=== PATIENT | male | born 1970 | race African-American/Black ===

== ENCOUNTER 2023-04-14 10:55 | Outpatient (AMB) | payer BC, SELFPAY ==
[2023-04-14 11:03] VITALS: BP 130/80; PULSE 82; BMI 39.6
--- NOTE | 2023-04-14 11:03 | HO.NEPHOV_ITS ---
HPI HPI Comments History of Present Illness Details 52-year-old man with a history of diabet es mellitus obesity with micro albuminuria. Overall renal function has been stable. The hemoglobin A1c has decreased from 12.8 down to 9.3 over the last several months. It has been a minimal improvement in the urine protein excretion. Today has no new complaints. Vital Signs 04/14/23 11:03 Height 6 ft 1 in Weight 300 lb 8 oz BMI 39.6 BP 130/80 Blood Pressure Location Rt brachial Position Sitting Pulse 82 Physical Exam Vital Signs: Last Vital Signs Pulse 82 04/14/23 11:03 BP 130/80 04/14/23 11:03 BMI result Body Mass Index 39.6 Const General: comfortable Nutritional Appearance: well nourished Orientation/consciousness: patient oriented x3 HEENT Head: No normal to inspection Mouth: moist mucous membranes Neck Neck: Yes supple and Yes no JVD Resp Auscultation: clear to auscultation bilaterally, no rales and rub present Cardio Jugular venous distension: no JVD Palpation: no palpable S3 and no palpable S4 Heart sounds: no rubs GI Palpation (GI): Soft to palpation and nontender Percussion: No Fluid wave present General: Yes no CVA tenderness Back/Spine/Pelvis Back: no CVA tenderness Skin General skin exam: no rashes or lesions noted Neuro General: patient oriented x3 Extrem General: Yes no pedal edema and No clubbing Results Reviewed Results Reviewed: Lab from January 2023 was reviewed Assessment & Plan Assessment & Plan (1) Proteinuria: Code(s): R80.9 - Proteinuria, unspecified (2) CKD (chronic kidney disease): Code(s): N18.9 - Chronic kidney disease, unspecified Plan Middle-aged man with diabetes medicine obesity with microalbuminuria. Renal function stable at this time with a creatinine 1.0. There has been a minimal improvement in the urinary protein excretion. Continue with Arnol inhibition for renal protection. Agree with SGLT-2 inhibitors We discussed importance of tight control blood sugar to slow the progression of disease. Hemoglobin A1c should be maintained less than 7%. We discussed weight loss and I have encouraged him to increase his physical activity. Orders: Orders US renal BI Today N18.9 - Chronic kidney disease, unspecified, R80.9 - Proteinuria, unspecified Total Protein Urine Random 6 Months N18.9 - Chronic kidney disease, unspecified, R80.9 - Proteinuria, unspecified Creatinine Urine 6 Months N18.9 - Chronic kidney disease, unspecified, R80.9 - Proteinuria, unspecified UA and rflx microscopic 6 Months N18.9 - Chronic kidney disease, unspecified, R80.9 - Proteinuria, unspecified Electrolytes 6 Months N18.9 - Chronic kidney disease, unspecified, R80.9 - Proteinuria, unspecified Calcium 6 Months N18.9 - Chronic kidney disease, unspecified, R80.9 - Proteinuria, unspecified Blood Urea Nitrogen 6 Months N18.9 - Chronic kidney disease, unspecified, R80.9 - Proteinuria, unspecified Creatinine 6 Months N18.9 - Chronic kidney disease, unspecified, R80.9 - Proteinuria, unspecified Coding Level of Care Code Est Pt Level 3 (43486) Diagnoses Proteinuria R80.9 CKD (chronic kidney disease) N18.9
== END 2023-04-14 11:26 | disposition home or self-care (01) ==
PROVIDERS: PCP Internal Medicine; Visit Provider Internal Medicine Hypertension Specialist
DX: R80.9 Proteinuria, unspecified (principal); N18.9 Chronic kidney disease, unspecified
CPT/HCPCS: 99213

== ENCOUNTER → 2023-04-14 10:55 | Outpatient (BNVA) | payer BC, SELFPAY | PROVIDERS: PCP Internal Medicine; Visit Provider Internal Medicine Hypertension Specialist ==

== ENCOUNTER 2023-05-20 08:40 | Outpatient (REF) | payer BC, SELFPAY ==
--- NOTE | ~2023-05-20 | US_ITS ---
EXAMINATION: US RETROPERITONEAL LIMITED (RENAL ONLY) CLINICAL INFORMATION: Chronic kidney disease, unspecified. COMPARISON: CT abdomen and pelvis 08/06/2022. TECHNIQUE: Real-time imaging of the kidneys. FINDINGS: RIGHT KIDNEY: 11.7 x 6.6 x 6.9 cm (SAG x AP x TRV). The kidney is normal in size, contour, and echogenicity. Renal cortical thickness is normal. No calculi or focal parenchymal lesions. No hydronephrosis. LEFT KIDNEY: 12.6 x 7.1 x 5.9 cm (SAG x AP x TRV). The kidney is normal in size, contour, and echogenicity. Renal cortical thickness is normal. No calculi or focal parenchymal lesions. No hydronephrosis. US/US renal BI IMPRESSION: Unremarkable renal ultrasound.
== END 2023-05-20 08:41 | disposition home or self-care (01) ==
LOC: HO.US 08:40
PROVIDERS: PCP Internal Medicine; Visit Provider Internal Medicine Hypertension Specialist
DX: N18.9 Chronic kidney disease, unspecified (principal); R80.9 Proteinuria, unspecified
CPT/HCPCS: 76775

== ENCOUNTER 2023-10-20 10:10 | Outpatient (AMB) | payer BC, SELFPAY ==
--- NOTE | 2023-10-20 10:14 | HO.NEPHOV ---
Vital Signs 10/20/23 10:15 Height 6 ft 1 in Weight 311 lb BMI 41.0 BP 138/78 Blood Pressure Location Lt brachial Position Sitting Pulse 86 Pulse Source Pulse Oximeter Pulse Oximetry (%) 6 L Oxygen Delivery Method Room Air Intake Visit Reasons: Follow-up/ Confirmed Digital Imaging Specialist Required: No Accompanied by: Self / Same As Patient Allergies No Known Allergies Allergy (Verified 10/20/23 10:17) HPI Comments Details: 52-year-old man with a history of diabetes mellitus obesity with micro albuminuria. Overall renal function has been stable. The hemoglobin A1c has decreased from 12.8 down to 9.3 over the last several months. It has been a minimal improvement in the urine protein excretion. Today has no new complaints. [facility] Surgical History (Updated 10/20/23 @ 10:21 by Janessa Auguste) History of arthroplasty of right shoulder (~08/2023) Physical Exam Vital Signs: Last Vital Signs Pulse 86 10/20/23 10:15 BP 138/78 10/20/23 10:15 Pulse Ox 6 L 10/20/23 10:15 Oxygen Delivery Method Room Air 10/20/23 10:15 BMI result Body Mass Index 41.0 Const General: comfortable Nutritional Appearance: well nourished Orientation/consciousness: patient oriented x3 HEENT Head: No normal to inspection Mouth: moist mucous membranes Neck Neck: Yes supple and Yes no JVD Resp Auscultation: clear to auscultation bilaterally, no rales and rub present Cardio Jugular venous distension: no JVD Palpation: no palpable S3 and no palpable S4 Heart sounds: no rubs GI Palpation (GI): Soft to palpation and nontender Percussion: No Fluid wave present General: Yes no CVA tenderness Back/Spine/Pelvis Back: no CVA tenderness Skin General skin exam: no rashes or lesions noted Neuro General: patient oriented x3 Extrem General: Yes no pedal edema and No clubbing Results Reviewed Nephrology Results: Renal US 05/20/23 Assessment & Plan Assessment & Plan (1) Proteinuria: Code(s): R80.9 - Proteinuria, unspecified Category: Medical (2) CKD (chronic kidney disease): Code(s): N18.9 - Chronic kidney disease, unspecified Category: Medical Plan Middle-aged man with diabetes medicine obesity with microalbuminuria. Renal function stable at this time with a creatinine 1.0. There has been a minimal improvement in the urinary protein excretion. Continue with Arnol inhibition for renal protection. Agree with SGLT-2 inhibitors We discussed importance of tight control blood sugar to slow the progression of disease. Hemoglobin A1c should be maintained less than 7%. We discussed weight loss and I have encouraged him to increase his physical activity. Orders: Orders Basic Metabolic Panel Today R80.9 - Proteinuria, unspecified UA and rflx microscopic Today R80.9 - Proteinuria, unspecified Total Protein Urine Random Today R80.9 - Proteinuria, unspecified Creatinine Urine Today N05.9 - Unspecified nephritic syndrome with unspecified morphologic changes, R80.9 - Proteinuria, unspecified Coding Level of Care Code Est Pt Level 4 (79261) Diagnoses Proteinuria R80.9 CKD (chronic kidney disease) N18.9
[2023-10-20 10:15] VITALS: BP 138/78; PULSE 86; O2SAT 6; BMI 41.0
== END 2023-10-20 10:31 | disposition home or self-care (01) ==
PROVIDERS: PCP Internal Medicine; Visit Provider Internal Medicine Hypertension Specialist
DX: R80.9 Proteinuria, unspecified (principal); N18.9 Chronic kidney disease, unspecified
CPT/HCPCS: 99214

== ENCOUNTER → 2023-10-20 10:10 | Outpatient (BNVA) | payer BC, SELFPAY | PROVIDERS: PCP Internal Medicine; Visit Provider Internal Medicine Hypertension Specialist ==

== ENCOUNTER 2023-10-20 10:43 | Outpatient (REF) | payer BC, SELFPAY ==
[2023-10-20 12:18] LABS: Appearance Urine Clear; Color Urine Yellow; Glucose Urine UA >=1000 mg/dL (Negative); Leukocyte Esterase Urine Negative (Negative); Nitrite Urine Negative (Negative); Specific Gravity - Urine 1.025 (1.005-1.025); UMIC TRIGGER UA YES; Urine Blood Negative (Negative); Urine Ketones Negative (Negative); Urine Protein 100 (2+) mg/dL (Neg-Trace)
[2023-10-20 12:23] LABS: Bacteria Urine None Seen (None Seen); Hyaline Casts Urine 0-2 /LPF (0-2); RBC Urine 0-2 /HPF (0-2); Squamous Epithelial Cell Urine 0-2 /HPF (0-2); WBC Urine 0-5 /HPF (0-5)
[2023-10-20 12:49] LABS: Creatinine Urine 41.95 mg/dL; Total Protein Urine Random 59 mg/dL (<12)
[2023-10-20 12:51] LABS: Anion Gap 14 (12-20); Blood Urea Nitrogen 17 mg/dL (9-16); Calcium 8.5 mg/dL (8.4-10.2); Carbon Dioxide 23 mmol/L (22-29); Chloride 107 mmol/L (96-108); Estimated Glomerular Filt Rate > 60; Glucose Random 246 mg/dL (60-115); Potassium 3.8 mmol/L (3.3-5.1); Sodium 140 mmol/L (135-145)
== END 2023-10-20 10:44 | disposition home or self-care (01) ==
LOC: HO.HKASLDS 10:43
PROVIDERS: Visit Provider Internal Medicine Hypertension Specialist
DX: N18.9 Chronic kidney disease, unspecified (principal); R80.9 Proteinuria, unspecified
CPT/HCPCS: 36415; 80048; 81001; 82570; 84156

== ENCOUNTER 2024-02-16 10:13 | Outpatient (AMB) | payer BC, SELFPAY ==
--- NOTE | 2024-02-16 10:15 | HO.NEPHOV_ITS ---
Vital Signs 02/16/24 10:16 Height 6 ft 1 in Weight 306 lb BMI 40.4 BP 138/82 Blood Pressure Location Lt brachial Position Sitting Pulse 86 Pulse Source Pulse Oximeter Pulse Oximetry (%) 97 Oxygen Delivery Method Room Air Intake Visit Reasons: Follow-up/ Conf Strategic Account Director Required: No Accompanied by: Self / Same As Patient Allergies No Known Allergies Allergy (Verified 02/16/24 10:17) Medication List - Last Reconciled 02/16/24 by Shakeel House MD acetaminophen (Tylenol) 325 mg PO QID PRN albuterol sulfate 90 mcg/actuation 1 puff inhalation QID aspirin (Adult Low Dose Aspirin) 81 mg PO DAILY dulaglutide (Trulicity) 1.5 mg subcut QWEEK empagliflozin (Jardiance) 25 mg PO DAILY enalapril maleate 20 mg PO DAILY hydrocortisone 2.5% 1 appl topical QID PRN insulin glargine 10 units subcut QPM insulin lispro (Humalog U-100 Insulin) 1 sliding scale dose subcut USEASDIRECTD loratadine 10 mg PO DAILY peg-electrolyte soln 420 gram 240 mL PO Q10M vardenafil 10 mg PO DAILY HPI Comments Details: 52-year-old man with a history of diabetes mellitus obesity with micro albuminuria. Overall renal function has been stable. The hemoglobin A1c has decreased from 12.8 down to 9.3 over the last several months. It has been a minimal improvement in the urine protein excretion. Today has no new complaints. Now on JArdiance [facility] Surgical History History of arthroplasty of right shoulder (~08/2023) Physical Exam Vital Signs: Last Vital Signs Pulse 86 02/16/24 10:16 BP 138/82 02/16/24 10:16 Pulse Ox 97 02/16/24 10:16 Oxygen Delivery Method Room Air 02/16/24 10:16 BMI result Body Mass Index 40.4 Const General: comfortable Nutritional Appearance: well nourished Orientation/consciousness: patient oriented x3 HEENT Head: No normal to inspection Mouth: moist mucous membranes Neck Neck: Yes supple and Yes no JVD Resp Auscultation: clear to auscultation bilaterally, no rales and rub present Cardio Jugular venous distension: no JVD Palpation: no palpable S3 and no palpable S4 Heart sounds: no rubs GI Palpation (GI): Soft to palpation and nontender Percussion: No Fluid wave present General: Yes no CVA tenderness Back/Spine/Pelvis Back: no CVA tenderness Skin General skin exam: no rashes or lesions noted Neuro General: patient oriented x3 Extrem General: Yes no pedal edema and No clubbing Results Reviewed Nephrology Results: Sodium 140 mmol/L (135-145) 10/20/23 Potassium 3.8 mmol/L (3.3-5.1) 10/20/23 Chloride 107 mmol/L (96-108) 10/20/23 Carbon Dioxide 23 mmol/L (22-29) 10/20/23 BUN 17 mg/dL (9-16) H 10/20/23 Creatinine 1.05 mg/dL (0.5-1.4) 10/20/23 Calcium 8.5 mg/dL (8.4-10.2) 10/20/23 Urine Protein 100 (2+) mg/dL (Neg-Trace) H 10/20/23 Urine Creatinine 41.95 mg/dL 10/20/23 Renal US 05/20/23 Assessment & Plan Assessment & Plan (1) Proteinuria: Code(s): R80.9 - Proteinuria, unspecified Category: Medical (2) CKD (chronic kidney disease): Code(s): N18.9 - Chronic kidney disease, unspecified Category: Medical Plan Middle-aged man with diabetes medicine obesity with microalbuminuria. Renal function stable at this time with a creatinine 1.0. There has been a minimal improvement in the urinary protein excretion. Continue with Arnol inhibition for renal protection. Agree with SGLT-2 inhibitors We discussed importance of tight control blood sugar to slow the progression of disease. Hemoglobin A1c should be maintained less than 7%. We discussed weight loss and I have encouraged him to increase his physical activity. No changes were made Orders: Orders Comprehensive Met. Panel 6 Months N18.9 - Chronic kidney disease, unspecified, R80.9 - Proteinuria, unspecified Total Protein Urine Random 6 Months N18.9 - Chronic kidney disease, unspecified, R80.9 - Proteinuria, unspecified Creatinine Urine 6 Months N18.9 - Chronic kidney disease, unspecified, R80.9 - Proteinuria, unspecified Complete Blood Count Auto Diff 6 Months N18.9 - Chronic kidney disease, unspecified, R80.9 - Proteinuria, unspecified UA and rflx microscopic 6 Months N18.9 - Chronic kidney disease, unspecified, R80.9 - Proteinuria, unspecified Coding Level of Care Code Est Pt Level 4 (85296) Diagnoses Proteinuria R80.9 CKD (chronic kidney disease) N18.9
[2024-02-16 10:16] VITALS: BP 138/82; PULSE 86; O2SAT 97; BMI 40.4
== END 2024-02-16 10:39 | disposition home or self-care (01) ==
PROVIDERS: PCP Internal Medicine; Visit Provider Internal Medicine Hypertension Specialist
DX: R80.9 Proteinuria, unspecified (principal); N18.9 Chronic kidney disease, unspecified
CPT/HCPCS: 99214

== ENCOUNTER → 2024-02-16 10:13 | Outpatient (BNVA) | payer BC, SELFPAY | PROVIDERS: PCP Internal Medicine; Visit Provider Internal Medicine Hypertension Specialist | DX: R80.9 Proteinuria, unspecified (principal); N18.9 Chronic kidney disease, unspecified ==

== ENCOUNTER 2024-08-23 09:49 | Outpatient (AMB) | payer BC, SELFPAY ==
[2024-08-23 09:47] VITALS: BP 118/78; PULSE 79; O2SAT 98; BMI 39.0
--- NOTE | 2024-08-23 09:47 | HO.NEPHOV_ITS ---
Vital Signs 08/23/24 09:47 Height 6 ft 1 in Weight 296 lb BMI 39.0 BP 118/78 Blood Pressure Location Lt brachial Position Sitting Pulse 79 Pulse Source Pulse Oximeter Pulse Oximetry (%) 98 Oxygen Delivery Method Room Air Intake Visit Reasons: 6 mon follow up/ Conf Remote Recruiter Required: No Accompanied by: Self / Same As Patient Allergies No Known Allergies Allergy (Verified 08/23/24 09:49) Medication List - Last Reconciled 08/23/24 by Shakeel House MD acetaminophen (Tylenol) 325 mg PO QID PRN albuterol sulfate 90 mcg/actuation 1 puff inhalation QID aspirin (Adult Low Dose Aspirin) 81 mg PO DAILY dulaglutide (Trulicity) mg subcut empagliflozin (Jardiance) 25 mg PO DAILY enalapril maleate 20 mg PO DAILY ezetimibe 10 mg PO DAILY hydrocortisone 2.5% 1 appl topical QID PRN insulin glargine 10 units subcut QPM insulin lispro (Humalog U-100 Insulin) 1 sliding scale dose subcut USEASDIRECTD loratadine 10 mg PO DAILY peg-electrolyte soln 420 gram 240 mL PO Q10M vardenafil 10 mg PO DAILY HPI Comments Details: 54-year-old man with a history of diabetes mellitus obesity with micro albumi rodriguez. Renal function has been stable. He is here for semiannual follow-up Denies any new complaints today. Now on Jardiance and and enalapril Recent A1C is 8.9 % in Jun 2024 [facility] Surgical History History of arthroplasty of right shoulder (~08/2023) Physical Exam Vital Signs: Last Vital Signs Pulse 79 08/23/24 09:47 BP 118/78 08/23/24 09:47 Pulse Ox 98 08/23/24 09:47 Oxygen Delivery Method Room Air 08/23/24 09:47 BMI result Body Mass Index 39.0 Const General: comfortable Nutritional Appearance: well nourished Orientation/consciousness: patient oriented x3 HEENT Head: No normal to inspection Mouth: moist mucous membranes Neck Neck: Yes supple and Yes no JVD Resp Auscultation: clear to auscultation bilaterally and no rales Cardio Jugular venous distension: no JVD Palpation: no palpable S3 and no palpable S4 Heart sounds: no rubs GI Palpation (GI): Soft to palpation and nontender Percussion: No Fluid wave present General: Yes no CVA tenderness Back/Spine/Pelvis Back: no CVA tenderness Skin General skin exam: no rashes or lesions noted Neuro General: patient oriented x3 Extrem General: Yes no pedal edema and No clubbing Results Reviewed Nephrology Results: Sodium 140 mmol/L (135-145) 10/20/23 Potassium 3.8 mmol/L (3.3-5.1) 10/20/23 Chloride 107 mmol/L (96-108) 10/20/23 Carbon Dioxide 23 mmol/L (22-29) 10/20/23 BUN 17 mg/dL (9-16) H 10/20/23 Creatinine 1.05 mg/dL (0.5-1.4) 10/20/23 Calcium 8.5 mg/dL (8.4-10.2) 10/20/23 Urine Protein 100 (2+) mg/dL (Neg-Trace) H 10/20/23 Urine Creatinine 41.95 mg/dL 10/20/23 Renal US 05/20/23 Assessment & Plan Assessment & Plan (1) Proteinuria: Code(s): R80.9 - Proteinuria, unspecified Category: Medical (2) CKD (chronic kidney disease): Code(s): N18.9 - Chronic kidney disease, unspecified Category: Medical Plan Middle-aged man with diabetes medicine obesity with microalbuminuria. Renal function stable at this time with a creatinine 1.0. There has been a minimal improvement in the urinary protein excretion. Continue with Arnol inhibition for renal protection. Agree with SGLT-2 inhibitors We discussed importance of tight control blood sugar to slow the progression of disease. Hemoglobin A1c should be maintained less than 7%. We discussed weight loss and I have encouraged him to increase his physical activity. Increase PO fluid intake No changes were made Orders: Orders Creatinine Urine Today N18.9 - Chronic kidney disease, unspecified, R80.9 - Proteinuria, unspecified UA and rflx microscopic Today N18.9 - Chronic kidney disease, unspecified, R80.9 - Proteinuria, unspecified UA and rflx microscopic 6 Months N18.9 - Chronic kidney disease, unspecified, R80.9 - Proteinuria, unspecified Total Protein Urine Random Today N18.9 - Chronic kidney disease, unspecified, R80.9 - Proteinuria, unspecified Basic Metabolic Panel 6 Months N18.9 - Chronic kidney disease, unspecified, R80.9 - Proteinuria, unspecified Creatinine Urine 6 Months N18.9 - Chronic kidney disease, unspecified, R80.9 - Proteinuria, unspecified Total Protein Urine Random 6 Months N18.9 - Chronic kidney disease, unspecified, R80.9 - Proteinuria, unspecified Coding Level of Care Code Est Pt Level 4 (56829) Diagnoses Proteinuria R80.9 CKD (chronic kidney disease) N18.9
--- OUTSIDE RECORDS SUMMARY | 2024-08-23 11:10 | XMS_ITS ---
Author Name [facility] Organization Unknown History of Medication Use Medication Directions Dispensed Refills Start Date End Date Stat naproxen 500 mg tablet TAKE 1 TABLET BY MOUTH TWO TIMES A DAY NEEDED FOR MODERATE PAIN 3 completed Semglee (insulin glargine-yfgn) Pen 100 unit/mL (3 mL) subcutaneous INJECT 70 UNITS SUBCUTANEOUSLY DAILY DIRECTED. active tadalafil 10 mg tablet active sildenafil 50 mg tablet TAKE 1 TABLET BY MOUTH EVERY DAY 1 HOUR BEFORE SEXUAL ACTIVITY NEEDED ERECTILE DYSFUNCTION active Jardiance 10 mg tablet TAKE 1 TABLET BY MOUTH EVERY DAY IN THE MORNING active Trulicity 0.75 mg/0.5 mL subcutaneous pen injector INJECT 1 PEN SUBCUTANEOUSLY ONCE WEEKLY active oxycodone 5 mg tablet TAKE 1 TABLET EVERY 6-8 HOURS NEEDED, DO NOT START UNTIL AFTER SURGERY 07/26/2023 active Lantus Solostar U-100 Insulin 100 unit/mL (3 mL) subcutaneous pen INJECT 76 UNITS SUBCUTANEOUSLY DAILY DIRECTED. active naproxen 500 mg tablet TAKE 1 TABLET BY MOUTH TWO TIMES A DAY NEEDED FOR MODERATE PAIN 3 completed enalapril maleate 20 mg tablet TAKE 2 TABLETS BY MOUTH EVERY DAY active sildenafil 50 mg tablet TAKE 1 TABLET BY MOUTH EVERY DAY 1 HOUR BEFORE SEXUAL ACTIVITY NEEDED ERECTILE DYSFUNCTION active clindamycin HCl 150 mg capsule TAKE 1 CAPSULE BY MOUTH EVERY 6 HOURS WITH FOOD IF ANY ALLERGIC REACTION,PLEASE CALL OFFICE CHUY 3 completed Jardiance 25 mg tablet TAKE 1 TABLET BY MOUTH EVERY MORNING active nystatin 100,000 unit/gram topical cream APPLY TO FEET TWICE A DAY active Jardiance 10 mg tablet TAKE 1 TABLET BY MOUTH EVERY DAY IN THE MORNING active meloxicam 15 mg tablet TAKE 1 TABLET EVERY DAY IN THE MORNING FOR 7 DAYS, START THE DAY AFTER SURGERY 4 completed Jardiance 25 mg tablet TAKE 1 TABLET BY MOUTH EVERY MORNING active loratadine 10 mg tablet TAKE 1 TABLET BY MOUTH DAILY NEEDED FOR ALLERGIES 3 completed nystatin 100,000 unit/gram topical cream APPLY TO FEET TWICE A DAY active lorazepam 1 mg tablet PLEASE SEE ATTACHED FOR DETAILED DIRECTIONS 4 completed Humalog KwikPen (U-100) Insulin 100 unit/mL subcutaneous PLEASE SEE ATTACHED FOR DETAILED DIRECTIONS active ezetimibe 10 mg tablet TAKE 1 TABLET BY MOUTH EVERY DAY active ondansetron HCl 4 mg tablet TAKE 1 TABLET BY MOUTH EVERY 8 HOURS NEEDED FOR SURGERY 4 completed Problems Problem Status Onset Date Problem Type Date of Resoluti on Source Claustrophobia active 2023-06-01 ProblemAct ENS _AONECT Pain of right shoulder joint active 2023-05-19 ProblemAct ENS_AONECT Impingement syndrome of right shoulder region active 2023-05-19 ProblemAct ENS_AO NECT Encounters Encounter Type Encounter Reason Primary Diagnosis Location Date Ambulatory [facility] [place] 08/20/2023 Ambulatory [facility] [place] 08/07/2023 Ambulatory [facility] [place] 08/02/2023 Ambulatory [facility] [place] 07/26/2023 Ambulatory ROUTINE Adhesive capsuli tis of right shoulder [facility] 07/21/2023 Ambulatory [facility] [place] 07/15/2023 Ambulatory [facility] [place] 07/12/2023 Ambulatory [facility] [place] 06/30/2023 Ambulatory [facility] [place] 06/28/2023 Ambulatory [facility] [place] 06/23/2023 Ambulatory [facility] [place] 06/11/2023 Ambulatory [facility] [place] 06/11/2023 Ambulatory [facility] [place] 06/10/2023 Ambulatory [facility] [place] 06/05/2023 Ambulatory [facility] [place] 05/02/2023 Ambulatory [facility] [place] 04/15/2023 Ambulatory [facility] [place] 04/15/2023 Ambulatory [facility] [place] 04/09/2023 Care Team Organization Name Specialty Phone Email Start Date End Da te [facility] 202307/21/2023 [facility] 2023
--- OUTSIDE RECORDS SUMMARY | 2024-08-23 11:10 | XMS_ITS | Clinical Summary ---
Author Organization [facility] Address [address] [place] [address] Phone Care Team Providers Care Station Installation Supervisor Name Role Phone Jaciel Denton MD Primary Care Provider [phone] Allergies Active Allergy Reactions Criticality Noted Date Comments Amoxicillin Hives,Other (see comments) 09/02/19 15 Hydrocodone Hives 05/30/2018 Simvastatin Other (see comments) 10/23/2020 Sulfa Antibiotics Other (see comments) 10/24/19 21 Medications insulin glargine (LANTUS) 100 UNIT/ML injection Inject 58 Units under the skin Active Cholecalciferol (Vitamin D3) 25 MCG (1000 UT) capsule 08/22/2020 Active enalapril (VASOTEC) 20 MG tablet Take 40 mg by mouth 1 (one) time each day 10/10/2020 Active Empagliflozin 25 MG tablet Take 25 mg by mouth Active Active Problems Problem Noted Date Diagnosed Date COVID-19 12/02/2021 Diverticular disease of colon 12/02/2021 Follow-up status 12/02/2021 Hyperlipidemia 12/02/2021 Low back pain 12/02/2021 Allergic rhinitis 10/22/2020 Chronic kidney disease 10/22/2020 Diabetes mellitus 10/22/2020 Dyslipidemia 10/22/2020 Hypertensive chronic kidney disease, unspecified, with chronic kidney disease stage I through stage IV, or unspecified 10/22/2020 Proteinuria 10/22/2020 Obesity 10/22/2020 Snoring 10/22/2020 Adhesive capsulitis of left shoulder 11/18/2017 Closed injury of head 09/02/2014 Alcohol use disorder, moderate 09/02/2014 Overview (03/07/2024): Replacing diagnoses that were inactivated after the 03/07/24 Regulatory Import Acute respiratory failure 09/01/2014 Alcohol intoxication 09/01/2014 Closed fracture of multiple ribs 09/01/2014 Hypertension 09/01/2014 Hypokalemia 09/01/2014 Right pneumothorax 09/01/2014 Polyneuropathy 05/28/2010 Overview (12/02/2021): small fiber polyneuropathy per Dr. Johnston Immunizations Name Administration Dates Next Due TD Preservative Free 09/01/2014 Family History Medical History Relation Comments Kidney disease Sibling brother Relation Status Comments Father Alive Mother Sibling Social History Tobacco Use Types Packs/Day Years Used Date Smoking Tobacco: Never Smokeless Tobacco: Never Tobacco Cessation:Counseling Given: Not Answered Alcohol Use Standard Drinks/Week Comments Yes 0 (1 standard drink = 0.6 oz pure alcohol) Alcoholic Drinks/day: Occasional social drink Sex and Gender Information Value Date Recorded Sex Assigned at Not on file Legal Sex Male 5:00 PM EST Gender Identity Not on file Sexual Orientation Not on file Last Filed Vital Signs Vital Sign Reading Time Taken Comments Blood Pressure 120/80 07/29/2022 12:13 PM EST Pulse 76 07/29/2022 12:13 PM EST Temperature - - Respiratory Rate - - Oxygen Saturation 97% 07/29/2022 12:13 PM EST Inhaled Oxygen Concentration - - Weight 135 kg (298 lb) 07/29/2022 12:13 PM EST Height 185.4 cm (6' 1 ) 07/29/2022 12:13 PM EST Body Mass Index 39.32 07/29/2022 12:13 PM EST Plan of Treatment Health Maintenance Due Date Last Done Comments Hepatitis B Vaccine (1 of 3 - 19+ 3-dose series) 1988 Pneumococcal Vaccine: Pediat rics (0 to 5 Years) and At-Risk Patients (6 to 64 Years) (2 of 2 - PCV) 06/30/2008 06/30/2007 Colorectal Cancer Screening: Annual FOBT 2018 Colorectal Cancer Screening: Colonoscopy 2018 Colorectal Cancer Screening: Sigmoidoscopy 2018 Diabetes: Hemoglobin A1C 07/08/2020 Diabetes: Ophthalmology Exam 07/08/2020 Diabetes: Pedal Pulse Checked 07/08/2020 Diabetes: Sensory Foot Exam 07/08/2020 Diabetes: Visual Foot Exam 07/08/2020 Influenza Vaccine (#1) 2024 2, 02/13/2009, 05/02/2008, Additional history exists Insurance [employer] Care Teams Station Installation Supervisor Relationship Specialty Start Date End Date Jaciel Denton MD [address] PCP - General Internal Medicine 10/23/20
== END 2024-08-23 13:41 | disposition home or self-care (01) ==
LOC: HO.HKAS 09:50
PROVIDERS: PCP Internal Medicine; Visit Provider Internal Medicine Hypertension Specialist
DX: R80.9 Proteinuria, unspecified (principal); N18.9 Chronic kidney disease, unspecified
CPT/HCPCS: 99214

== ENCOUNTER 2024-08-23 09:49 | Outpatient (REF) | payer BC, SELFPAY ==
[2024-08-23 18:17] LABS: MANUAL DIFF FLAG NO
[2024-08-23 18:25] LABS: Appearance Urine Clear; Color Urine Yellow; Glucose Urine UA >=1000 mg/dL (Negative); Leukocyte Esterase Urine Negative (Negative); Nitrite Urine Negative (Negative); PH 6.5 (5.0-9.0); Specific Gravity - Urine >= 1.030 (1.005-1.025); UMIC TRIGGER UA YES; Urine Blood Negative (Negative); Urine Ketones Negative (Negative); Urine Protein 100 (2+) mg/dL (Neg-Trace)
[2024-08-23 18:29] LABS: Basophils Percent Auto 0.6 % (0-2); Eosinophils Absolute Auto 0.1 X10*3/uL (0.0-0.4); Eosinophils Percent Auto 1.8 % (0-4); Hematocrit 48.3 % (42.0-52.0); Hemoglobin 15.6 g/dl (14.0-18.0); Imm Gran Abs Auto 0.02 X10*3/uL (0.00-0.03); Imm Gran Pct Auto 0.3 % (0.0-0.4); Lymphocytes Percent Auto 31.2 % (20-40); Mean Corpuscular HGB Conc 32.3 g/dl (31.0-36.0); Mean Corpuscular Hemoglobin 28.9 pg (27.0-33.0); Mean Corpuscular Volume 89.4 fL (80.0-98.0); Mean Platelet Volume 10.9 fL (9.4-12.4); Monocytes Absolute Auto 0.8 X10*3/uL (0.1-1.2); Monocytes Percent Auto 12.6 % (2-11); Neutrophils Absolute Auto 3.4 x10*3/uL (2.0-8.3); Neutrophils Percent Auto 53.5 % (45-73); Platelet Count 283 X10*3/uL (160-400); Red Cell Distribution Width 14.1 % (11.0-16.0); White Blood Count 6.3 X10*3/uL (4.8-10.8)
[2024-08-23 18:32] LABS: Bacteria Urine None Seen (None Seen); Hyaline Casts Urine 0-2 /LPF (0-2); RBC Urine 0-2 /HPF (0-2); Squamous Epithelial Cell Urine 0-2 /HPF (0-2); WBC Urine 0-5 /HPF (0-5)
[2024-08-23 18:44] LABS: Alanine Aminotransferase 55 U/L (0-40); Albumin Level 3.8 g/dL (3.5-5.0); Alkaline Phosphatase 57 U/L (39-117); Anion Gap 12 (12-20); Aspartate Amino Transferase 39 U/L (5-37); Bilirubin Total 0.4 mg/dL (0.0-1.0); Blood Urea Nitrogen 19 mg/dL (9-16); Calcium 8.7 mg/dL (8.4-10.2); Carbon Dioxide 23 mmol/L (22-29); Chloride 108 mmol/L (96-108); Estimated Glomerular Filt Rate > 60; Glucose Random 160 mg/dL (60-115); Potassium 4.1 mmol/L (3.3-5.1); Sodium 139 mmol/L (135-145); Total Protein 6.9 g/dL (6.5-8.0)
[2024-08-23 19:01] LABS: Creatinine Urine 49.92 mg/dL; Total Protein Urine Random 68 mg/dL (<12)
== END 2024-08-23 09:50 | disposition home or self-care (01) ==
LOC: HO.HKASLDS 09:49
PROVIDERS: PCP Internal Medicine; Visit Provider Internal Medicine Hypertension Specialist
DX: N18.9 Chronic kidney disease, unspecified (principal); R80.9 Proteinuria, unspecified
CPT/HCPCS: 36415; 80053; 81001; 82570; 84156; 85025